=== PATIENT | male | born 1955 | race Caucasian/White ===

== ENCOUNTER 2019-05-07 07:07 | Day surgery (SDC) | payer MEDICAID, MEDICARE ==
[2019-05-07] MEDS ORDERED: fentaNYL 100 MCG/2 ML SDV ONE (07:10)
[2019-05-07] MEDS ORDERED: Propofol 200 MG/20 ML SDV ONE (07:10)
[2019-05-07] MEDS ORDERED: Midazolam 1 MG/ML 2 ML SDV ONE (07:10)
[2019-05-07] MEDS ORDERED: Dextrose 5%-Lactated Ringers 1,000 ML IV SCH (07:30)
[2019-05-07 10:06] VITALS: BP 140/91; PULSE 52
--- NOTE | 2019-05-10 11:31 | OR ---
DATE OF PROCEDURE: 05/07/2019 SURGEON: Lino Conrad MD PREOPERATIVE DIAGNOSIS: History of colon polyps. POSTOPERATIVE DIAGNOSIS: Normal colonoscopic examination (no recurrent polyps). OPERATIVE PROCEDURE: Flexible colonoscopy. ANESTHESIA: IV sedation. INDICATIONS FOR PROCEDURE: This is a 64-year-old presenting for a screening colonoscopy. He has had history of colon polyps in the past. The plan is to proceed with flexible colonoscopy with biopsies and/or polypectomy as indicated. Potential risks of the procedure including bleeding and perforation were discussed, and the patient wishes to proceed. DETAILS OF PROCEDURE: The patient was taken to the operating room and placed in a left lateral decubitus position. IV sedation was administered, after which the initial digital rectal exam was performed which was unremarkable. Colonoscope was then passed into the rectum with retroflexion revealing uncomplicated hemorrhoidal columns. Scope was eventually passed to the level of the cecum. The prep was quite good with only small amount of liquid and a few bits of solid stool present. Vast majority of the surfaces were well visualized. To that level, there were no areas of diverticular disease, no colitis, no polyps or other signs of neoplasia. Scope was then withdrawn and the above findings reconfirmed, and the procedure was then concluded. The patient was taken to the recovery room in satisfactory condition. Given the patient's history of colon polyps, the recommendation would be to repeat the colonoscopy in 5 years. Lino Conrad MD /[id number]
== END 2019-05-07 10:10 | disposition home or self-care (01) ==
LOC: JP.SDS 07:07
PROVIDERS: ATTEND Surgery
DX: Z12.11 Encounter for screening for malignant neoplasm of colon (principal); K64.9 Unspecified hemorrhoids; E78.5 Hyperlipidemia, unspecified; N48.6 Induration penis plastica; Z86.010 Personal history of colon polyps
CPT/HCPCS: G0121; J2250; J2704; J3010; J7121

== ENCOUNTER → 2025-02-12 | Day surgery (SDC) | payer MEDICARE ==
[~2025-02-12] MED LIST: Midazolam 1 MG/ML 2 ML SDV ONE; Propofol 200 MG/20 ML SDV ONE; fentaNYL 50 MCG/ML SDV ONE
[2025-02-12] MEDS: Lactated Ringers 1,000 ML IV SCH (07:26)
[2025-02-12 09:18] VITALS: BP 153/93; PULSE 74
== END ==
LOC: JP.SDS 06:26
PROVIDERS: ATTEND Family Medicine
DX: Z12.11 Encounter for screening for malignant neoplasm of colon (principal); D12.2 Benign neoplasm of ascending colon; K64.8 Other hemorrhoids; Z91.09 Other allergy status, other than to drugs and biological substances; Z86.0100 Personal history of colon polyps, unspecified; Z79.899 Other long term (current) drug therapy
CPT/HCPCS: 00811; 45380; 45381; J2250; J2704; J3010; J7120